=== PATIENT | male | born 1935 | race Caucasian/White ===

== ENCOUNTER 2017-06-21 07:09 | Day surgery (SDC) | payer MEDICARE ==
[~2017-06-21] VITALS: Ht 172.7 cm; Wt 76.8 kg
[~2017-06-21 07:09] MED LIST: ALTACE5 MG PO; BAYER CHEWABLE81 MG PO; CYCLOBENZAPRINE10 MG PO; DITROPAN X5 MG/BOTTL PO; DURAGESIC1 PATCH .1 TRANSDERM; DYAZIDE 37.5/251 CAP PO; HALDOL5 MG PO; HYDROCODON-ACE1 EAC7 PO; KLONOPIN0.5 MG PO; LEVAQUIN500 MG PO; LIPITOR40 MG PO; METOPROLOL TART50 MG; MUCINEX600 MG PO; NEURONTIN 300300 MG PO; PHENERGAN25 M1 PO; VALIUM5 MG PO; VESICARE10 MG PO; VITAMIN B-122500 MCG PO; VOLTAREN75 MG PO; ZYLOPRIM100 MG PO
[2017-06-21 07:45] LABS: BASOPHILS 0.4 % (0-2); EOSINOPHILS 2.2 % (0-7); HEMATOCRIT 40.8 % (42.0-54.0); HEMOGLOBIN 13.4 g/dL (13.5-17.5); IMMATURE GRANULOCYTES 0.8 % (0-5); LYMPHOCYTES 13.3 % (15-50); MCH 28.3 pg (26.0-34.0); MCHC 32.8 g/dL (31.0-37.0); MCV 86.3 fL (80.0-100.0); MEAN PLATELET VOLUME 10.5 fL (7.4-10.4); MONOCYTES 9.8 % (2-11); NEUTROPHILS 73.5 % (40-80); PLATELET COUNT 353 10x3/uL (130-400); RBC 4.73 10x6/uL (4.20-6.10); RDW 14.6 % (11.5-14.5); WBC 16.5 10x3/uL (4.8-10.8)
[2017-06-21] MEDS ORDERED: XARELTO15 MG PO (07:53)
[2017-06-21] MEDS ORDERED: LIORESAL 10 MG10 MG PO (07:53)
[2017-06-21 07:55] VITALS: Ht 172.7 cm; Wt 76.8 kg
[2017-06-21 07:55] LABS: ANION GAP 16.8 mmol/L (8-16); CALCIUM 9.3 mg/dL (8.5-10.1); CARBON DIOXIDE 25.5 mmol/L (21.0-32.0); CREATININE - SERUM 1.3 mg/dL (0.6-1.3); POTASSIUM - SERUM 3.3 mmol/L (3.5-5.1)
[2017-06-21] MEDS ORDERED: OMEPRAZOLE40 MG PO (08:10)
--- NOTE | 2017-06-22 07:19 | OP ---
PATIENT NAME: ERIC SUAREZ MEDICAL RECORD: [id number] :33 [facility] DATE: SURGEON: YUE MATAMOROS DO DATE OF OPERATION: 06/21/2017 PROCEDURE: EGD with biopsies. INDICATIONS FOR PROCEDURE: Nausea, melena, right-sided abdominal pain. SCOPE: Etaphase video gastroscope. MEDICATIONS: Propofol 150 mg IV per anesthesia. ESTIMATED BLOOD LOSS: Minimal. COMPLICATIONS: None. FINDINGS: Informed consent was given. The patient was made comfortable with the above medication. After reaching an adequate level of sedation by slow IV push, the patient was placed on his left side. The endoscope was then advanced under direct visualization through the mouth to the third portion of the duodenum. The scope was slowly withdrawn and mucosa was carefully examined. In the esophagus, there was a few patchy areas of mild esophageal candidiasis. At the GE junction, there was very mild evidence of LA class A reflux-induced esophagitis. The endoscope was advanced beyond the GE junction into the stomach and retroflexed to view the cardia which appeared normal. Throughout the stomach in a diffuse pattern, there were findings consistent with atrophic gastritis. There were a few telangiectatic areas, but there were no ulcers, erosions, or other bleeding sites. Random biopsies were taken to submit for histology and to rule out H. pylori. The endoscope was advanced beyond the pylorus into the small bowel where the duodenal bulb, first portion, second portion, and third portion all appeared normal. The scope was withdrawn from the patient. The patient tolerated the procedure well and there were no complications. IMPRESSION: 1. Esophageal candidiasis which is mild. 2. Left atrial class A reflux-induced esophagitis. 3. 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 PLAN AND RECOMMENDATIONS: 1. Discharge home when recovery parameters are met. 2. Follow up biopsy specimen results. 3. Continue current medications including omeprazole 40 mg daily for at least 30 more days. 4. A script will be provided for fluconazole 100 mg daily times 7 days. 5. The melena has resolved. If the nausea and abdominal pain does not improve or resolve with the omeprazole, I would recommend more fiber in the diet, staying well-hydrated, and continue stool softeners to facilitate more regular bowel movements. Consideration could be given to performing a gastric emptying study to rule out gastroparesis and an abdominal ultrasound could be performed to rule out obvious causes for pain outside of the digestive tract. 6. Further recommendations to follow biopsies if indicated. TRANSINT:[id number] Voice Confirmation ID: [id number] DOCUMENT ID: [id number] OPERATIVE REPORT [id number] ERIC SUAREZ NATHAN A DO at 0719 CC: [id number] DICTATION DATE: 06/21/17 1000 COOK DINNER: 06/21/17 1614 [facility] 06/21/17 [address] [place] [address]
== END 2017-06-21 11:15 | disposition home or self-care (01) ==
LOC: D.OPS 07:09
PROVIDERS: Anesthesiology
DX: R11.0 Nausea (principal); R10.9 Unspecified abdominal pain; K92.1 Melena; B37.81 Candidal esophagitis; K21.0 Gastro-esophageal reflux disease with esophagitis; Z01.812 Encounter for preprocedural laboratory examination; I10 Essential (primary) hypertension; E11.9 Type 2 diabetes mellitus without complications; J44.9 Chronic obstructive pulmonary disease, unspecified

== ENCOUNTER → 2017-09-15 15:12 | Outpatient (CLI) | payer MEDICARE ==
[2017-06-21 07:55] VITALS: BMI 25.7
[~2017-09-15 15:12] MED LIST changes: +GABAPENTIN100 MG PO; +LIORESAL 10 MG10 MG PO; +OMEPRAZOLE40 MG PO; +XARELTO15 MG PO
[2017-09-15 15:23] LABS: BASOPHILS 0.3 % (0-2); EOSINOPHILS 0.8 % (0-7); HEMATOCRIT 21.1 % (42.0-54.0); IMMATURE GRANULOCYTES 0.3 % (0-5); LYMPHOCYTES 9.6 % (15-50); MCH 21.4 pg (26.0-34.0); MCHC 28.4 g/dL (31.0-37.0); MCV 75.4 fL (80.0-100.0); MEAN PLATELET VOLUME 10.4 fL (7.4-10.4); MONOCYTES 8.6 % (2-11); NEUTROPHILS 80.4 % (40-80); PLATELET COUNT 370 10x3/uL (130-400); RDW 16.2 % (11.5-14.5); WBC 15.4 10x3/uL (4.8-10.8)
== END | disposition home or self-care (01) ==
LOC: D.LABREF 15:12
PROVIDERS: Neurological Surgery
DX: D64.9 Anemia, unspecified (principal)

== ENCOUNTER 2017-09-15 16:27 | Inpatient (IN) | payer MEDICARE ==
[~2017-09-15] VITALS: Ht 172.7 cm; Wt 80.9 kg
[2017-09-15] VITALS (9 sets, daily range): BP systolic 91–148; BP diastolic 44–90
[~2017-09-15 16:27] MED LIST changes: -GABAPENTIN100 MG PO
[2017-09-15 17:49] LABS: ALBUMIN 3.6 g/dL (3.4-5.0); ANION GAP 18.9 mmol/L (8-16); BILIRUBIN - TOTAL 0.24 mg/dL (0.2-1.3); CALCIUM 8.8 mg/dL (8.5-10.1); CARBON DIOXIDE 23.4 mmol/L (21.0-32.0); CREATININE - SERUM 1.4 mg/dL (0.6-1.3); POTASSIUM - SERUM 4.3 mmol/L (3.5-5.1)
[2017-09-15 18:22] LABS: BASOPHILS 0.3 % (0-2); EOSINOPHILS 0.9 % (0-7); IMMATURE GRANULOCYTES 0.5 % (0-5); LYMPHOCYTES 10.4 % (15-50); MCH 21.8 pg (26.0-34.0); MEAN PLATELET VOLUME 10.4 fL (7.4-10.4); MONOCYTES 8.1 % (2-11); NEUTROPHILS 79.8 % (40-80); PLATELET COUNT 314 10x3/uL (130-400); RBC 2.48 10x6/uL (4.20-6.10); RDW 16.3 % (11.5-14.5)
[2017-09-15 18:24] LABS: WBC 11.5 10x3/uL (4.8-10.8)
[2017-09-15 18:25] LABS: HEMATOCRIT 18.6 % (42.0-54.0); HEMOGLOBIN 5.4 g/dL (13.5-17.5)
--- NOTE | 2017-09-15 20:00 | NUR ---
ICU NURSE STARTED IV TO LAC ONE STICK, GOING TO GO GET FIRST UNIT OF BLOOD NOW
--- NOTE | 2017-09-15 20:25 | NUR ---
FIRST UNIT OF BLOOD STARTED
[2017-09-16] VITALS (22 sets, daily range): BP systolic 101–138; BP diastolic 50–89; Ht 172.7 cm; Wt 80.9 kg
--- NOTE | 2017-09-16 00:31 | NUR ---
SECOND UNIT OF BLOOD STARTED
--- NOTE | 2017-09-16 03:01 | NUR ---
SECOND UNIT OF BLOOD FINISHED, PT SLEEPING, NO DISTRESS NOTED, CALL LIGHT IN REACH, WILL CONTINUE TO MONITOR
[2017-09-16 06:38] LABS: BASOPHILS 0.2 % (0-2); IMMATURE GRANULOCYTES 0.4 % (0-5); LYMPHOCYTES 20.8 % (15-50); MCH 25.2 pg (26.0-34.0); MCHC 32.8 g/dL (31.0-37.0); MCV 76.9 fL (80.0-100.0); MEAN PLATELET VOLUME 9.5 fL (7.4-10.4); MONOCYTES 11.7 % (2-11); NEUTROPHILS 63.9 % (40-80); RDW 15.9 % (11.5-14.5)
[2017-09-16 06:40] LABS: RBC 3.29 10x6/uL (4.20-6.10); WBC 8.1 10x3/uL (4.8-10.8)
[2017-09-16 06:41] LABS: HEMATOCRIT 25.3 % (42.0-54.0); HEMOGLOBIN 8.3 g/dL (13.5-17.5); PLATELET COUNT 222 10x3/uL (130-400)
[2017-09-16 06:48] LABS: ANION GAP 11.1 mmol/L (8-16); CALCIUM 8.3 mg/dL (8.5-10.1); CARBON DIOXIDE 27.8 mmol/L (21.0-32.0); CREATININE - SERUM 1.5 mg/dL (0.6-1.3); POTASSIUM - SERUM 3.9 mmol/L (3.5-5.1)
--- NOTE | 2017-09-16 09:51 | NUR ---
PRE OPERATIVE MEDICATIONS ADMINISTERED AT THIS TIME.
--- NOTE | 2017-09-16 10:20 | NUR ---
TAKEN FOR EGD AT THIS TIME.
[2017-09-16 10:21] LABS: HEMATOCRIT 24.6 % (42.0-54.0); HEMOGLOBIN 7.9 g/dL (13.5-17.5)
--- NOTE | 2017-09-16 10:57 | NUR ---
AVMS ABLATED WITH GOLD PROBE.
--- NOTE | 2017-09-16 11:11 | NUR ---
2CC OF EPENEPHRINE INJECTED FOR BLEEDING CONTROL.
--- NOTE | 2017-09-16 11:19 | NUR ---
1 CLIP WAS READY TO PLACED BUT DID NOT ACTIVATE WAS READY AAND WAISTED.
[2017-09-16] MEDS ORDERED: GABAPENTIN100 MG PO ×2 (12:08→12:22)
[2017-09-16] MEDS ORDERED: KLONOPIN0.5 MG PO (12:10)
[2017-09-16 13:42] LABS: HEMATOCRIT 25.4 % (42.0-54.0)
[2017-09-16 16:35] LABS: HEMATOCRIT 23.5 % (42.0-54.0)
[2017-09-16 16:41] LABS: HEMOGLOBIN 7.3 g/dL (13.5-17.5)
--- NOTE | 2017-09-16 20:05 | NUR ---
FIRST OF 2 UNITS OF PRBC STARTED, DENIES NEEDS, VITALS WNL, CALL LIGHT IN REACH
--- NOTE | 2017-09-16 22:38 | NUR ---
FIRST UNIT OF PRBC FINISHED, DENIES NEEDS, NO S/S OF ADVERSE REACTION OR DISTRESS NOTED, BE DLOWEST POSITION, CALL LIGHT IN REACH, WILL CONTINUE TO MONITOR
[2017-09-17] VITALS: BP 130/60
[2017-09-17 00:15] VITALS: BP 115/53
[2017-09-17 00:45] VITALS: BP 112/50
[2017-09-17 01:15] VITALS: BP 129/58
--- NOTE | 2017-09-17 01:51 | NUR ---
SECOND UNIT OF PRBCS FINISHED, HELPED PT TO BATHROOM, DENIES NEEDS, ANGELA ALARM ON, CALL LIGHT IN REACH, BED LOWEST POSITION
--- NOTE | 2017-09-17 06:09 | NUR ---
PT RESTING QUIETLY, EYES CLOSED. RESP EVEN, UNLABORED. NO DISTRESS NOTED. CONTINUE TOMATO PASTE MAKER'S PLAN OF CARE.
[2017-09-17 07:11] LABS: BASOPHILS 0.5 % (0-2); EOSINOPHILS 3.3 % (0-7); IMMATURE GRANULOCYTES 0.5 % (0-5); LYMPHOCYTES 15.7 % (15-50); MCH 24.7 pg (26.0-34.0); MCHC 31.9 g/dL (31.0-37.0); MCV 77.4 fL (80.0-100.0); MEAN PLATELET VOLUME 10.2 fL (7.4-10.4); MONOCYTES 9.4 % (2-11); NEUTROPHILS 70.6 % (40-80); PLATELET COUNT 207 10x3/uL (130-400); RBC 3.89 10x6/uL (4.20-6.10); RDW 16.7 % (11.5-14.5); WBC 8.8 10x3/uL (4.8-10.8)
[2017-09-17 07:14] LABS: ALBUMIN 2.9 g/dL (3.4-5.0); ANION GAP 11.7 mmol/L (8-16); BILIRUBIN - TOTAL 0.82 mg/dL (0.2-1.3); CALCIUM 8.1 mg/dL (8.5-10.1); CREATININE - SERUM 1.2 mg/dL (0.6-1.3); POTASSIUM - SERUM 3.7 mmol/L (3.5-5.1); PROTEIN - SERUM 5.9 g/dL (6.4-8.2)
[2017-09-17 07:20] LABS: HEMATOCRIT 30.1 % (42.0-54.0); HEMOGLOBIN 9.6 g/dL (13.5-17.5)
--- NOTE | 2017-09-17 07:30 | NUR ---
ASSESSMENT PER FLOW SHEET.PT WIHTOUT DISTRESS.DENIES NEEDS AT PRESENT.FALL PREVENTION IN PLACE WITH ANGELA MAT.CALL LIGHT IN REACH
[2017-09-17 08:10] VITALS: BP 118/61
[2017-09-17 10:17] LABS: HEMATOCRIT 29.6 % (42.0-54.0); HEMOGLOBIN 9.5 g/dL (13.5-17.5)
--- NOTE | 2017-09-17 11:56 | NUR ---
FAMILY AT BEDSIDE.PT WITHOUT DISTRESS.
[2017-09-17 12:53] VITALS: BP 106/50
[2017-09-17 13:16] LABS: HEMATOCRIT 30.7 % (42.0-54.0); HEMOGLOBIN 9.7 g/dL (13.5-17.5)
--- NOTE | 2017-09-17 14:52 | NUR ---
FAMILY AT BEDSIDE.MEDS PER MAR PER FAMILY AND PT REQQUEST FOR LEG DISCOMFORT
--- NOTE | 2017-09-17 19:01 | NUR ---
IV DCD X2 WITH CATH TIP INTACT.DISCHARGE INSTRUCTIONS WITH DAUGHTER,STATES UNDEERSTANDING.
--- NOTE | 2017-09-17 19:03 | NUR ---
LEFT UNIT VIA WHEELCHAIR FOR TRANSPORT HOME
--- NOTE | 2017-10-22 12:26 | DS ---
PATIENT:ERIC SUAREZ :33 MEDICAL RECORD: [id number] DISCHARGE SUMMARY ADMISSION DATE: 09/15/17 DISCHARGE DATE: 09/17/17 DATE OF ADMISSION: 09/15/2017 DATE OF DISCHARGE: 09/17/2017 DISCHARGE DIAGNOSES: 1. Severe anemia. 2. Chronic obstructive pulmonary disease. 3. Hypertension. 4. Dyspnea. 5. History of deep venous thrombosis. 6. Gastrointestinal bleed. CONSULTS: 1. Nick Abad DO 2. IR for possible IVC filter. IMAGING STUDIES: 1. Ultrasound of the lower extremities, which was negative for DVT. 2. Chest x-ray, which showed no acute findings. 3. 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 HOSPITAL COURSE: The full H&P is listed elsewhere on the chart for this 82-year-old patient of Dr. Cao'violeta with multiple comorbid conditions who was on Xarelto therapy with a DVT in the past. He was found to be severely anemic with a hemoglobin of 6 and hematocrit of 21. His DVT was about 6 months ago. He entered in the hospital with severe anemia, underwent transfusion of packed red blood cells, and a GI consult as well as interventional radiology consult was obtained. The patient was placed on a Protonix drip and given a full liquid diet. The endoscopic procedure did show a single AVM that was injected with epinephrine. This did successfully stop the bleeding. Interventional radiology was not needed for IVC filter since the repeat venous Dopplers were negative for DVT. His Xarelto therapy was discontinued. His blood counts did stabilize. He was thought to be stable and was discharged to home to follow up in the outpatient setting. TRANSINT:[id number] Voice Confirmation ID: [id number] DOCUMENT ID: [id number] Dictated By: BELEN DUKE I have interviewed/examined the above patient and agree with these documented findings. MAHSA ODELL MD at 1226 at 1433 CC: [id number] DICTATION DATE: 10/13/17 1658 HEALTHCARE PROJECT MANAGER: 10/14/17 0936 DIS IN 09/17/17 [address] [place] [address]
== END 2017-09-17 19:03 | disposition home health service (06) | DRG 378 ==
LOC: D.MS 16:27
PROVIDERS: Internal Medicine Gastroenterology; ADMIT Family Medicine
PROC: 3E0G8GC Introduction of Other Therapeutic Substance into Upper GI, Via Natural or Artificial Opening Endoscopic (ICD-10-PCS; principal; 2017-09-16 10:00)
DX: K31.811 Angiodysplasia of stomach and duodenum with bleeding (principal); D62 Acute posthemorrhagic anemia; K31.819 Angiodysplasia of stomach and duodenum without bleeding; I10 Essential (primary) hypertension; J44.9 Chronic obstructive pulmonary disease, unspecified; G25.5 Other chorea; G25.81 Restless legs syndrome; Z86.718 Personal history of other venous thrombosis and embolism; Z79.01 Long term (current) use of anticoagulants; D64.9 Anemia, unspecified

== ENCOUNTER 2017-10-11 16:13 | Emergency (ER) | payer MEDICARE ==
[2017-09-16 01:52] VITALS: BMI 27.1
[~2017-10-11 16:13] MED LIST changes: +GABAPENTIN100 MG PO
[2017-10-11 17:01] LABS: BASOPHILS 0.3 % (0-2); EOSINOPHILS 1.9 % (0-7); HEMATOCRIT 36.8 % (42.0-54.0); HEMOGLOBIN 11.3 g/dL (13.5-17.5); IMMATURE GRANULOCYTES 0.5 % (0-5); LYMPHOCYTES 5.9 % (15-50); MCH 24.4 pg (26.0-34.0); MCHC 30.7 g/dL (31.0-37.0); MCV 79.5 fL (80.0-100.0); MEAN PLATELET VOLUME 10.2 fL (7.4-10.4); MONOCYTES 6.8 % (2-11); NEUTROPHILS 84.6 % (40-80); RBC 4.63 10x6/uL (4.20-6.10); RDW 18.4 % (11.5-14.5)
[2017-10-11 17:11] LABS: PLATELET COUNT 335 10x3/uL (130-400)
[2017-10-11 17:15] LABS: ALBUMIN 3.5 g/dL (3.4-5.0); ANION GAP 15.1 mmol/L (8-16); BILIRUBIN - TOTAL 0.36 mg/dL (0.2-1.3); CALCIUM 8.4 mg/dL (8.5-10.1); CREATININE - SERUM 1.6 mg/dL (0.6-1.3); POTASSIUM - SERUM 3.1 mmol/L (3.5-5.1); PROTEIN - SERUM 6.9 g/dL (6.4-8.2)
== END 2017-10-11 19:18 | disposition home or self-care (01) ==
LOC: D.ER 16:13
PROVIDERS: Family Medicine
DX: J11.1 Influenza due to unidentified influenza virus with other respiratory manifestations (principal)

== ENCOUNTER 2018-02-03 08:09 | Day surgery (SDC) | payer MEDICARE ==
[~2018-02-03] VITALS: Ht 172.7 cm; Wt 83.0 kg
--- NOTE | ~2018-02-03 | OP ---
PATIENT NAME: ERIC SUAREZ MEDICAL RECORD: [id number] :34 LOCATION:D.[facility] ADMISSION DATE: SURGEON: WANDER GILLILAND MD DATE OF OPERATION: 02/03/2018 PREOPERATIVE DIAGNOSES: 1. Headache. 2. Hypertension. 3. Diabetes mellitus. 4. Chronic obstructive pulmonary disease. 5. Gout. POSTOPERATIVE DIAGNOSES: 1. Headache. 2. Hypertension. 3. Diabetes mellitus. 4. Chronic obstructive pulmonary disease. 5. Gout. PROCEDURE: Left temporal artery biopsy. SURGEON: Wander Gilliland MD HOSE BUILDER: Physician's funeral director's assistant student is Denice Nugent REPORT OF OPERATION: The patient's left face and ear were prepped and draped in sterile fashion. A longitudinal incision was made just anterior to the patient's left ear. We dissected through the subcutaneous tissues and encountered the temporal artery. This artery was grasped and we extended our dissection up towards the forehead. At this point, it was ligated and tied off with a 3-0 silk tie. As we were beginning our dissection inferiorly, the vessel broke in 2 places. We sent these 2 sections of tissue off for permanent specimen. The inferior aspect of the vessel was ligated with 3-0 silk tie and the remaining vessel was sent off for permanent. There was some bleeding at one point and this was eventually taken care of with a suture ligation. The wound was then irrigated out thoroughly with normal saline. The subcutaneous tissues were reapproximated with interrupted 3-0 Vicryl and then infused with a total of 7 mL of 0.25% Marcaine with epinephrine. The skin incisions were all closed with subcutaneous 5-0 Monocryl and dressed with Dermabond. COMPLICATIONS: None. CONDITION: Stable. ANESTHESIA: General endotracheal and local. BLOOD LOSS: 100 mL. TRANSINT:[id number] Voice Confirmation ID: [id number] DOCUMENT ID: [id number] OPERATIVE REPORT [id number] ERIC SUAREZ WANDER YU MD at 0804 CC: LUIAZ CASILLAS [id number] DICTATION DATE: 02/03/18 1142 NEGATIVE SPOTTER: 02/03/18 1226 [facility] 02/03/18 [address] [place] [address]
[~2018-02-03 08:09] MED LIST changes: +CARAFATE1 G PO; +CLARITIN 10 MG10 MG PO; +IPRAT-ALBUT 0.5-3 ML UPD; +K-TAB10 MEQ PO; +PREDNISONE10 MG PO; +STOOL SOFTENER100 M1 PO
[2018-02-03 09:24] VITALS: BP 121/66; Ht 172.7 cm; Wt 83.0 kg
[2018-02-03 09:33] LABS: BASOPHILS 0.2 % (0-2); EOSINOPHILS 0 % (0-7); HEMATOCRIT 37.6 % (42.0-54.0); HEMOGLOBIN 11.7 g/dL (13.5-17.5); IMMATURE GRANULOCYTES 1.2 % (0-5); LYMPHOCYTES 12.7 % (15-50); MCHC 31.1 g/dL (31.0-37.0); MCV 77.2 fL (80.0-100.0); MEAN PLATELET VOLUME 9.9 fL (7.4-10.4); NEUTROPHILS 78.9 % (40-80); RBC 4.87 10x6/uL (4.20-6.10); RDW 16.8 % (11.5-14.5); WBC 12.9 10x3/uL (4.8-10.8)
[2018-02-03 09:40] LABS: PLATELET COUNT 227 10x3/uL (130-400)
[2018-02-03 09:46] LABS: ANION GAP 15.1 mmol/L (8-16); CALCIUM 8.6 mg/dL (8.5-10.1); CREATININE - SERUM 1.1 mg/dL (0.6-1.3); POTASSIUM - SERUM 3.1 mmol/L (3.5-5.1)
[2018-02-03] MEDS ORDERED: HYDROCODON-ACE1 EAC7 PO (11:38)
== END 2018-02-03 13:45 | disposition home or self-care (01) ==
LOC: D.OPS 08:09
PROVIDERS: Surgery
DX: R51 Headache (principal); I10 Essential (primary) hypertension; E11.9 Type 2 diabetes mellitus without complications; J44.9 Chronic obstructive pulmonary disease, unspecified; M10.9 Gout, unspecified; Z01.812 Encounter for preprocedural laboratory examination

== ENCOUNTER 2018-08-24 12:21 | Inpatient (IN) | payer MEDICARE ==
[~2018-08-24] VITALS: Ht 172.7 cm; Wt 83.6 kg
--- NOTE | ~2018-08-24 | MORECARE ---
CASE MANAGEMENT DISCHARGE SUMMARY PATIENT: ERIC SUAREZ UNIT: [id number] ADM DATE: 08/24/18 AGE: 83 : 34 SEX: M ROOM/BED: D.2107 AUTHOR: MARICHUY PATTON PHYSICIAN: REFERRING PHYSICIAN: DAMEON LEPE MD DATE OF SERVICE: 08/29/18 Discharge Plan Patient Name: ERIC SUAREZ [facility] [facility] 1935 Planned Disposition: Home Anticipated Discharge Date: 08/28/18 Discharge Date: 08/28/2018 Expected LOS: 4 Initial Reviewer: [email or web address] Initial Review Date: 08/29/2018 Generated: 08/29/18 9:24 am Patient Name: ERIC SUAREZ Page [id number] at 0824 All edits/amendments must be made on the electronic document DICTATION DATE: 08/29/18822 OFFICE BOOKKEEPER: EVERARDO 08/29/18822 RPT#: [id number] DC DATE:08/28/18 STATUS: DIS IN [facility] [address] [place] [address] END OF REPORT
--- NOTE | ~2018-08-24 | CN ---
PATIENT NAME:ERIC SUAREZ MEDICAL RECORD: [id number] : 33 LOCATION:D. D.2107 ADMIT DATE: 08/24/18 ACCOUNT: [id number] CONSULTING PHYSICIAN: VLADIMIR LAZCANO MD REFERRING PHYSICIAN: JOSE KRUSE MD DATE OF CONSULTATION: 08/24/2018 CONSULT REQUESTING PHYSICIAN: Jose Kruse MD REASON FOR CONSULTATION: Pneumonia and COPD exacerbation. HISTORY: Mr. Suarez is an 83-year-old gentleman. According to the patient, he woke up this morning with shortness of breath with mild exertion. He was congested in chest. He had a chest x-ray at Dr. Cao's office and was told that he had pneumonia on the right side. Denies any night sweats. He is feeling feverish. REVIEW OF THE SYSTEMS: As in history of present illness. PAST MEDICAL HISTORY: 1. COPD. 2. History of pneumonia. 3. Hypertension. 4. Arthritis. 5. Anxiety. PAST SURGICAL HISTORY: 1. Cholecystectomy. 2. Knee surgery. 3. Back surgery. 4. Surgery for carpal tunnel syndrome. ALLERGIES: HE IS ALLERGIC TO STREPTOMYCIN AND SULFA. MEDICATIONS: [employer] was reviewed. PERSONAL AND SOCIAL HISTORY: The patient is an ex-smoker. He is nondrinker. FAMILY HISTORY: Noncontributory. PHYSICAL EXAMINATION: GENERAL: Now, the patient is lying comfortably in bed. He is wearing nasal cannula oxygen. He is not in acute distress. VITAL SIGNS: The blood pressure is 133/64, pulse is 97, respiration is 20, temperature is 98.1, SpO2 is 96% on 3 liters nasal cannula. HEENT: Conjunctivae are pink. Sclerae are not icteric. NECK: Neck is supple. No JVD. CHEST: There are crackles at the right base and wheeze on forceful expiration. HEART: Rhythm regular. Normal sound. No murmur. ABDOMEN: Abdomen is soft. Bowel sounds present. No hepatosplenomegaly. RECTAL: Deferred. EXTREMITIES: No cyanosis. No clubbing. No pedal edema. SKIN: The skin is warm. Normal turgor. CENTRAL NERVOUS SYSTEM: The patient is awake and alert. There is no obvious cranial nerve abnormality. The gait was not tested. CONSULT REPORT [id number] ERIC SUAREZ IMAGING DATA: Chest x-ray; there is no chest x-ray available for review. LABORATORY DATA: The labs are not available. IMPRESSION: 1. Possible pneumonia. 2. Acute hypoxic respiratory failure. 3. Acute exacerbation of COPD. 4. Ex-smoker. 5. Hypertension. RECOMMENDATION: 1. Continue the empiric antibiotic. 2. Albuterol/ipratropium nebulizer. 3. Brovana and budesonide nebulizer. 4. Methylprednisolone IV. 5. Check the chest radiograph. 6. Follow up on the labs. Dr. Kruse, thank you for involving me in the care of Mr. Suarez. TRANSINT:[id number] Voice Confirmation ID: [id number] DOCUMENT ID: [id number] VLADIMIR LAZCANO MD at 1711 CC: [id number] DICTATION DATE: 08/24/181714 VICE PRESIDENT OF OPERATIONS: 08/24/18 1827 DIS IN 08/28/18 [address] [place] [address]
--- NOTE | ~2018-08-24 | MORECARE ---
CASE MANAGEMENT DISCHARGE SUMMARY PATIENT: ERIC SUAREZ UNIT: [id number] ADM DATE: 08/24/18 AGE: 83 : 34 SEX: M ROOM/BED: D.2107 AUTHOR: MARICHUY PATTON PHYSICIAN: REFERRING PHYSICIAN: DAMEON LEPE MD DATE OF SERVICE: 08/29/18 Discharge Plan Patient Name: ERIC SUAREZ Facility: [facility]:[place] : 1935 Planned Disposition: Home Anticipated Discharge Date: 08/28/18 Discharge Date: 08/28/2018 Expected LOS: 4 Initial Reviewer: [email or web address] Initial Review Date: 08/29/2018 Generated: 08/29/18 9:43 am Comments DCP- Discharge Planning Updated by [email or web address]: Ty Levine on 08/29/18 7:[address] Patient Name: ERIC SUAREZ Encounter No: [id number] : 1935 Primary Insurance: [facility] MED[employer]UTIONS Anticipated DC Date: 08-28-2018 Planned Disposition: Home DCP follow-up note: CM RECEIVED DISCHARGE ORDER FROM 08-28 INDICATING PT WILL NEED IV FERRLECIT OUPATIENT AND THAT [facility] WILL COORDINATE. CM CALLED [facility], , SPOKE TO KAT AND MADE HER AWARE OF THE ORDER. KAT REPORTED THAT [facility] WILL TAKE CARE OF THIS NEED. TY LEVINE, CASE MANAGEMENT Last DP export: 08/29/18 7:24 Patient Name: ERIC SUAREZ Page [phone] at 0843 All edits/amendments must be made on the electronic document DICTATION DATE: 08/29/18842 BACK GRAY CLOTH WASHER: EVERARDO 08/29/18 0843 RPT#: [id number] DC DATE:08/28/18 STATUS: DIS IN [facility] [address] [place] [address] END OF REPORT
[2018-08-24 14:40] VITALS: BP 133/64; Ht 172.7 cm; Wt 83.6 kg
[2018-08-24 15:44] VITALS: BP 133/64
[2018-08-24] MEDS ORDERED: MOBIC7.5 MG PO (17:27)
[2018-08-24] MEDS ORDERED: TESSALON PERLE100 MG PO (17:29)
[2018-08-24] MEDS ORDERED: PHENERGAN DM SYR5 ML PO (17:30)
[2018-08-24] MEDS ORDERED: NORCO 7.5/325 T1 TA1 PO (17:32)
[2018-08-24] MEDS ORDERED: BREO ELLIPTA 21 EACH (17:42)
[2018-08-24] MEDS ORDERED: IPRAT-ALBUT 0.5-3 ML UPD (17:42)
[2018-08-24 18:52] LABS: BASOPHILS 0.2 % (0-2); EOSINOPHILS 1.6 % (0-7); HEMATOCRIT 32.4 % (42.0-54.0); HEMOGLOBIN 9.5 g/dL (13.5-17.5); IMMATURE GRANULOCYTES 0.5 % (0-5); LYMPHOCYTES 9.7 % (15-50); MCH 22.6 pg (26.0-34.0); MCHC 29.3 g/dL (31.0-37.0); MCV 77.1 fL (80.0-100.0); MEAN PLATELET VOLUME 10.5 fL (7.4-10.4); MONOCYTES 6.4 % (2-11); NEUTROPHILS 81.6 % (40-80); PLATELET COUNT 265 10x3/uL (130-400); WBC 19.5 10x3/uL (4.8-10.8)
[2018-08-24 19:16] LABS: ALBUMIN 2.9 g/dL (3.4-5.0); ANION GAP 16.2 mmol/L (8-16); BILIRUBIN - TOTAL 0.34 mg/dL (0.2-1.3); CALCIUM 8.5 mg/dL (8.5-10.1); CARBON DIOXIDE 25.2 mmol/L (21.0-32.0); CREATININE - SERUM 1.6 mg/dL (0.6-1.3); POTASSIUM - SERUM 3.4 mmol/L (3.5-5.1); PROTEIN - SERUM 6.2 g/dL (6.4-8.2)
[2018-08-24 20:27] VITALS: BP 115/55
[2018-08-25 04:00] VITALS: BP 120/58
[2018-08-25 08:03] LABS: APPEARANCE CLEAR (CLEAR); BILIRUBIN NEGATIVE (NEGATIVE); COLOR YELLOW (YELLOW); GLUCOSE NEGATIVE (NEGATIVE); KETONE SMALL mg/dL (NEGATIVE); NITRITE NEGATIVE (NEGATIVE); PROTEIN NEGATIVE (NEGATIVE); SPECIFIC GRAVITY 1.015 (1.005-1.020); UROBILINOGEN NORMAL (NORMAL)
[2018-08-25 08:13] VITALS: BP 118/57
[2018-08-25 11:54] VITALS: BP 138/65
[2018-08-25 15:53] VITALS: BP 103/54
[2018-08-25 16:48] LABS: BASOPHILS 0 % (0-2); EOSINOPHILS 0 % (0-7); HEMATOCRIT 29.4 % (42.0-54.0); HEMOGLOBIN 8.6 g/dL (13.5-17.5); IMMATURE GRANULOCYTES 0.4 % (0-5); LYMPHOCYTES 5.1 % (15-50); MCH 22.3 pg (26.0-34.0); MCHC 29.3 g/dL (31.0-37.0); MCV 76.2 fL (80.0-100.0); MEAN PLATELET VOLUME 10.7 fL (7.4-10.4); MONOCYTES 4.1 % (2-11); NEUTROPHILS 90.4 % (40-80); PLATELET COUNT 262 10x3/uL (130-400); RBC 3.86 10x6/uL (4.20-6.10); RDW 18.9 % (11.5-14.5)
[2018-08-25 16:55] LABS: WBC 14.5 10x3/uL (4.8-10.8)
[2018-08-25 17:00] LABS: ANION GAP 15.9 mmol/L (8-16); CALCIUM 8.3 mg/dL (8.5-10.1); CARBON DIOXIDE 22.3 mmol/L (21.0-32.0); CREATININE - SERUM 1.9 mg/dL (0.6-1.3); POTASSIUM - SERUM 3.2 mmol/L (3.5-5.1)
[2018-08-25 21:57] VITALS: BP 89/42
[2018-08-26 01:04] VITALS: BP 93/42
[2018-08-26 04:08] LABS: BASOPHILS 0 % (0-2); EOSINOPHILS 0 % (0-7); HEMOGLOBIN 8.3 g/dL (13.5-17.5); IMMATURE GRANULOCYTES 0.4 % (0-5); LYMPHOCYTES 4.8 % (15-50); MCH 22.4 pg (26.0-34.0); MCHC 29.6 g/dL (31.0-37.0); MCV 75.7 fL (80.0-100.0); MEAN PLATELET VOLUME 10.4 fL (7.4-10.4); MONOCYTES 5.4 % (2-11); NEUTROPHILS 89.4 % (40-80); PLATELET COUNT 261 10x3/uL (130-400); WBC 16.4 10x3/uL (4.8-10.8)
[2018-08-26 04:50] LABS: ALBUMIN 2.5 g/dL (3.4-5.0); BILIRUBIN - TOTAL 0.24 mg/dL (0.2-1.3); CALCIUM 8.4 mg/dL (8.5-10.1); CARBON DIOXIDE 27.3 mmol/L (21.0-32.0); CREATININE - SERUM 1.7 mg/dL (0.6-1.3); MAGNESIUM - SERUM 1.9 mg/dL (1.8-2.4); PROTEIN - SERUM 5.9 g/dL (6.4-8.2)
[2018-08-26 04:55] LABS: ANION GAP 11.5 mmol/L (8-16); POTASSIUM - SERUM 3.8 mmol/L (3.5-5.1)
[2018-08-26 05:40] VITALS: BP 102/48
[2018-08-26 09:01] VITALS: BP 119/53
[2018-08-26 10:30] LABS: % SATURATION 4 % (15-55); IRON 14 ug/dl (35-150); TOTAL IRON BIND CAPACITY 294 ug/dl (260-445); UNSAT IRON BIND CAPACITY 280 ug/dl (150-375)
[2018-08-26 12:18] VITALS: BP 127/58
[2018-08-26 16:06] VITALS: BP 128/51
[2018-08-26 20:12] VITALS: BP 130/57
[2018-08-27] VITALS (8 sets, daily range): BP systolic 131–152; BP diastolic 59–86
[2018-08-27 06:04] LABS: BASOPHILS 0.1 % (0-2); EOSINOPHILS 0 % (0-7); HEMATOCRIT 31.4 % (42.0-54.0); HEMOGLOBIN 9.3 g/dL (13.5-17.5); IMMATURE GRANULOCYTES 0.9 % (0-5); LYMPHOCYTES 3.5 % (15-50); MCH 22.3 pg (26.0-34.0); MCHC 29.6 g/dL (31.0-37.0); MCV 75.3 fL (80.0-100.0); MEAN PLATELET VOLUME 10.7 fL (7.4-10.4); MONOCYTES 4.2 % (2-11); NEUTROPHILS 91.3 % (40-80); RBC 4.17 10x6/uL (4.20-6.10); RDW 19.1 % (11.5-14.5); WBC 15.3 10x3/uL (4.8-10.8)
[2018-08-27 06:07] LABS: PLATELET COUNT 346 10x3/uL (130-400)
[2018-08-27 06:33] LABS: ALBUMIN 2.5 g/dL (3.4-5.0); ANION GAP 11.6 mmol/L (8-16); CALCIUM 8.4 mg/dL (8.5-10.1); CREATININE - SERUM 1.3 mg/dL (0.6-1.3); MAGNESIUM - SERUM 1.8 mg/dL (1.8-2.4); POTASSIUM - SERUM 3.6 mmol/L (3.5-5.1)
[2018-08-27 06:54] LABS: BILIRUBIN - TOTAL 0.3 mg/dL (0.2-1.3); PROTEIN - SERUM 6.2 g/dL (6.4-8.2)
[2018-08-27 08:16] LABS: FOLATE (FOLIC ACID) - SERUM 7.6 ng/mL (>3.0)
[2018-08-28 03:45] VITALS: BP 142/73
[2018-08-28 05:22] LABS: BASOPHILS 0.1 % (0-2); EOSINOPHILS 0 % (0-7); HEMATOCRIT 34.2 % (42.0-54.0); HEMOGLOBIN 10.2 g/dL (13.5-17.5); IMMATURE GRANULOCYTES 3.3 % (0-5); LYMPHOCYTES 5.6 % (15-50); MCH 22.4 pg (26.0-34.0); MCHC 29.8 g/dL (31.0-37.0); MCV 75.2 fL (80.0-100.0); MEAN PLATELET VOLUME 10.5 fL (7.4-10.4); MONOCYTES 6.6 % (2-11); NEUTROPHILS 84.4 % (40-80); PLATELET COUNT 326 10x3/uL (130-400); RBC 4.55 10x6/uL (4.20-6.10); RDW 19.2 % (11.5-14.5); WBC 14.6 10x3/uL (4.8-10.8)
[2018-08-28 05:44] LABS: ALBUMIN 2.9 g/dL (3.4-5.0); ANION GAP 13.3 mmol/L (8-16); BILIRUBIN - TOTAL 0.34 mg/dL (0.2-1.3); CALCIUM 8.7 mg/dL (8.5-10.1); CARBON DIOXIDE 27.2 mmol/L (21.0-32.0); CREATININE - SERUM 1.4 mg/dL (0.6-1.3); MAGNESIUM - SERUM 1.9 mg/dL (1.8-2.4); POTASSIUM - SERUM 3.5 mmol/L (3.5-5.1); PROTEIN - SERUM 6.8 g/dL (6.4-8.2)
[2018-08-28 10:05] VITALS: BP 132/76
[2018-08-28 13:23] VITALS: BP 97/56
[2018-08-28 16:00] VITALS: BP 98/56
[2018-08-28] MEDS ORDERED: LEVOFLOXACIN500 MG PO (17:47)
[2018-08-28] MEDS ORDERED: PREDNISONE10 MG PO (17:47)
[2018-08-28 19:07] VITALS: BP 99/86
== END 2018-08-28 19:50 | disposition home or self-care (01) | DRG 193 ==
LOC: D.SDCHOLD 12:21 → D.M2 12:21
PROVIDERS: Emergency Medicine
DX: J18.9 Pneumonia, unspecified organism (principal); J96.01 Acute respiratory failure with hypoxia; J44.0 Chronic obstructive pulmonary disease with (acute) lower respiratory infection; J44.1 Chronic obstructive pulmonary disease with (acute) exacerbation; I10 Essential (primary) hypertension; F41.9 Anxiety disorder, unspecified; Z87.891 Personal history of nicotine dependence; D50.9 Iron deficiency anemia, unspecified

== ENCOUNTER 2019-01-13 06:08 | Observation (INO) | payer MEDICARE ==
[~2019-01-13] VITALS: Ht 172.7 cm; Wt 83.5 kg
[~2019-01-13 06:08] MED LIST changes: +BREO ELLIPTA 21 EACH; +LEVOFLOXACIN500 MG PO; +MOBIC7.5 MG PO; +NORCO 7.5/325 T1 TA1 PO; +PHENERGAN DM SYR5 ML PO; +TESSALON PERLE100 MG PO
[2019-01-13] MEDS ORDERED: FERROCITE (06:20)
[2019-01-13] MEDS ORDERED: ALTACE10 MG (06:20)
[2019-01-13] MEDS ORDERED: NEURONTIN 300300 MG PO (06:21)
[2019-01-13] MEDS ORDERED: ASCORBIC ACID500 MG PO (06:23)
[2019-01-13] MEDS ORDERED: MAXZIDE 75/501 TAB PO (06:23)
[2019-01-13] MEDS ORDERED: ZYLOPRIM100 MG PO (06:23)
[2019-01-13] MEDS ORDERED: COLACE100 MG (06:24)
[2019-01-13] MEDS ORDERED: OXYBUTYNIN CHLOR5 MG (06:25)
[2019-01-13] MEDS ORDERED: KLOR-CON 1010 MEQ PO (06:26)
[2019-01-13] MEDS ORDERED: VITAMIN B-121000 MCG PO (06:26)
[2019-01-13] MEDS ORDERED: OMEPRAZOLE40 MG PO (06:27)
[2019-01-13] MEDS ORDERED: VITAMIN D3400 UNI1 PO (06:27)
[2019-01-13] MEDS ORDERED: ZYRTEC10 MG PO (06:28)
[2019-01-13] MEDS ORDERED: TERBINAFINE (06:28)
[2019-01-13] MEDS ORDERED: MOBIC7.5 MG PO (06:29)
[2019-01-13 06:44] LABS: BASOPHILS 0.3 % (0-2); EOSINOPHILS 3.5 % (0-7); HEMATOCRIT 47.1 % (42.0-54.0); HEMOGLOBIN 15.2 g/dL (13.5-17.5); IMMATURE GRANULOCYTES 0.6 % (0-5); LYMPHOCYTES 15.3 % (15-50); MCH 28.8 pg (26.0-34.0); MCHC 32.3 g/dL (31.0-37.0); MCV 89.2 fL (80.0-100.0); MEAN PLATELET VOLUME 10.4 fL (7.4-10.4); MONOCYTES 6.3 % (2-11); RBC 5.28 10x6/uL (4.20-6.10); RDW 17.5 % (11.5-14.5); WBC 12.7 10x3/uL (4.8-10.8)
[2019-01-13 06:54] LABS: PLATELET COUNT 260 10x3/uL (130-400)
[2019-01-13 06:56] LABS: APPEARANCE CLEAR (CLEAR); BILIRUBIN NEGATIVE (NEGATIVE); COLOR YELLOW (YELLOW); GLUCOSE NEGATIVE (NEGATIVE); KETONE NEGATIVE (NEGATIVE); NITRITE NEGATIVE (NEGATIVE); PROTEIN NEGATIVE (NEGATIVE); UDS - AMPHET NEGATIVE QUAL (NEGATIVE); UDS - BARB NEGATIVE QUAL (NEGATIVE); UDS - BENZO NEGATIVE QUAL (NEGATIVE); UDS - COCAINE NEGATIVE QUAL (NEGATIVE); UDS - OPIATE NEGATIVE QUAL (NEGATIVE); UDS - PCP NEGATIVE QUAL (NEGATIVE); UDS - THC NEGATIVE QUAL (NEGATIVE); UROBILINOGEN NORMAL (NORMAL)
[2019-01-13 07:13] LABS: ALBUMIN 3.1 g/dL (3.4-5.0); ANION GAP 9.1 mmol/L (8-16); BILIRUBIN - TOTAL 0.39 mg/dL (0.2-1.3); CALCIUM 8.7 mg/dL (8.5-10.1); CARBON DIOXIDE 30.5 mmol/L (21.0-32.0); CREATININE - SERUM 1.3 mg/dL (0.6-1.3); POTASSIUM - SERUM 3.6 mmol/L (3.5-5.1); PROTEIN - SERUM 6.8 g/dL (6.4-8.2)
[2019-01-13 07:14] LABS: MAGNESIUM - SERUM 2.1 mg/dL (1.8-2.4); THYROID STIMULATING HORMONE 0.81 uIU/mL (0.36-3.74)
--- NOTE | 2019-01-13 07:20 | NUR ---
PT GIVEN ICE CHIP PER EDP.
--- NOTE | 2019-01-13 08:36 | NUR ---
PT LEFT DEPARTMENT TO GO TO MRI.
[2019-01-13 10:16] VITALS: BP 142/85
--- NOTE | 2019-01-13 11:19 | MORECARE ---
CASE MANAGEMENT DISCHARGE SUMMARY PATIENT: ERIC SUAREZ UNIT: [id number] ADM DATE: 01/13/19 AGE: 83 : 34 SEX: M ROOM/BED: D.2236 AUTHOR: MARICHUY PATTON PHYSICIAN: REFERRING PHYSICIAN: LUIZA CASILLAS DO DATE OF SERVICE: 01/13/19 Discharge Plan Patient Name: ERIC SUAREZ [facility] [facility] 1935 Planned Disposition: Anticipated Discharge Date: Discharge Date: Expected LOS: Initial Reviewer: [email or web address] Initial Review Date: 01/13/2019 Generated: 01/13/19 12:19 pm Patient Name: ERIC SUAREZ Page 88604 at 1119 All edits/amendments must be made on the electronic document DICTATION DATE: 01/13/19 1119 METAL STORAGE WORKER: EVERARDO 01/13/19 1119 RPT#: [id number] DC DATE: STATUS: ADM IN [facility] [address] [place] [address] END OF REPORT
--- NOTE | 2019-01-13 11:26 | MORECARE ---
CASE MANAGEMENT DISCHARGE SUMMARY PATIENT: ERIC SUAREZ UNIT: [id number] ADM DATE: 01/13/19 AGE: 83 : 34 SEX: M ROOM/BED: D.2236 AUTHOR: MARICHUY PATTON PHYSICIAN: REFERRING PHYSICIAN: LUIZA CASILLAS DO DATE OF SERVICE: 01/13/19 Discharge Plan Patient Name: ERIC SUAREZ [facility] [facility] 1935 Planned Disposition: Anticipated Discharge Date: Discharge Date: Expected LOS: Initial Reviewer: [email or web address] Initial Review Date: 01/13/2019 Generated: 01/13/19 12:26 pm DCPIA - Discharge Planning Initial Assessment Updated by [email or web address]: Jessica Silva on 01/13/19 11:23 am * Is the patient Alert and Oriented? No * How many steps to enter\exit or inside your home? Ramps w/ra * PCP Dr. Casillas * [facility] * Preadmission Environment Home with Family * ADLs Partial Dependent * Partial ADLs (Assistance needed) Dressing * Equipment Hospital Bed Nebulizer Oxygen Rolling Walker * Other Equipment Portable O2 Lift Chair * List name and contact numbers for known caregivers / representatives who currently or will assist patient after discharge: Jennifer Suarez (dtr) [phone] Stacia Suarez () same # * Verbal permission to speak to the caregivers and representatives has been obtained from the patient. Yes * Community resources currently utilized None * Please name any agencies selected above. [facility] * Additional services required to return to the preadmission environment? No * Can the patient safely return to the preadmission environment? Yes * Has this patient been hospitalized within the prior 30 days at any hospital? No Last DP export: 01/13/19 10:19 am Patient Name: ERIC SUAREZ Page 83699 at 1126 All edits/amendments must be made on the electronic document DICTATION DATE: 01/13/19 1126 LATEX THREAD MACHINE OPERATOR: EVERARDO 01/13/19 1126 RPT#: [id number] DC DATE: STATUS: ADM IN [facility] [address] [place] [address] END OF REPORT
--- NOTE | 2019-01-13 12:15 | MORECARE ---
CASE MANAGEMENT DISCHARGE SUMMARY PATIENT: ERIC SUAREZ UNIT: [id number] ADM DATE: 01/13/19 AGE: 83 : 34 SEX: M ROOM/BED: D.2236 AUTHOR: POOJA,DOC PHYSICIAN: REFERRING PHYSICIAN: LUIZA CASILLAS DO DATE OF SERVICE: 01/13/19 Discharge Plan Patient Name: ERIC SUAREZ Facility: [facility]:[place] : 1935 Planned Disposition: Anticipated Discharge Date: Discharge Date: Expected LOS: Initial Reviewer: [email or web address] Initial Review Date: 01/13/2019 Generated: 01/13/19 1:14 pm DCP- Discharge Planning Updated by [email or web address]: Jessica Silva on 01/13/19 11:[address] CM met with patient and spouse, @bedside to discuss dc plans/needs. Patient is somnolent, so information obtained from spouse, Stacia Corcoraner and daughter Jennifer Barba . PCP: Dr. Casillas. Pharmacy: [facility] in [place]. Emergency contact: Jennifer Barba @[phone]. Family states patient requires assistance with bathing, dressing, medication management and lives in the family home. Patient also utilizes a hospital bed, walker, Home O2, portable O2, Nebulizer, lift chair. DME: [facility]. Patient's daughter manages finances, medication. Spouse is the patient's primary caregiver. Patient denies being hospitalized within the past 30 days. CM will follow and assist PRN. Jessica Silva RN, CM DCPIA - Discharge Planning Initial Assessment Updated by [email or web address]: Jessica Silva on 01/13/19 11:23 am * Is the patient Alert and Oriented? No * How many steps to enter\exit or inside your home? Ramps w/ra * PCP Dr. Casillas * Pharmacy [facility] * Preadmission Environment Home with Family * ADLs Partial Dependent * Partial ADLs (Assistance needed) Dressing * Equipment Hospital Bed Nebulizer Oxygen Rolling Walker * Other Equipment Portable O2 Lift Chair * List name and contact numbers for known caregivers / representatives who currently or will assist patient after discharge: Jennifer Suarez (dtr) [phone] Stacia Suarez () same # * Verbal permission to speak to the caregivers and representatives has been obtained from the patient. Yes * Community resources currently utilized None * Please name any agencies selected above. [facility] * Additional services required to return to the preadmission environment? No * Can the patient safely return to the preadmission environment? Yes * Has this patient been hospitalized within the prior 30 days at any hospital? No Last DP export: 01/13/19 10:26 am Patient Name: ERIC SUAREZ Page [phone] at 1215 All edits/amendments must be made on the electronic document DICTATION DATE: 01/13/191213 JUNIOR JAVA DEVELOPER: EVERARDO 01/13/191213 RPT#: [id number] DC DATE: STATUS: ADM IN [facility] [address] [place] [address] END OF REPORT
[2019-01-13 12:39] VITALS: BP 141/68; BMI 28.0
[2019-01-13 16:40] VITALS: BP 155/72
[2019-01-13 20:00] VITALS: BP 151/72
--- NOTE | 2019-01-13 20:30 | NUR ---
RECEIVED REPORT, ASSUMED CARE, CALL LIGHT IN REACH, BED LOWEST POSITION, NO S/S OF DISTRESS NOTED, A&O, LAC IV INFUSING PATENT, WILL CONTINUE POC
[2019-01-14] VITALS: BP 148/63
[2019-01-14 03:00] VITALS: BP 170/79
--- NOTE | 2019-01-14 04:31 | NUR ---
I have reviewed this patient and I concur with the Shift Assessment completed by the Licensed Practical Nurse today this shift.
[2019-01-14 06:41] LABS: BASOPHILS 0.2 % (0-2); EOSINOPHILS 3.8 % (0-7); HEMATOCRIT 42.9 % (42.0-54.0); LYMPHOCYTES 22.1 % (15-50); MCH 28.7 pg (26.0-34.0); MCHC 32.6 g/dL (31.0-37.0); MCV 88.1 fL (80.0-100.0); MEAN PLATELET VOLUME 11.2 fL (7.4-10.4); MONOCYTES 9.6 % (2-11); NEUTROPHILS 63.3 % (40-80); PLATELET COUNT 241 10x3/uL (130-400); RBC 4.87 10x6/uL (4.20-6.10); RDW 17.4 % (11.5-14.5)
[2019-01-14 07:07] LABS: WBC 8.9 10x3/uL (4.8-10.8)
[2019-01-14 07:11] LABS: ALBUMIN 2.7 g/dL (3.4-5.0); ALKALINE PHOSPHATASE 50 U/L (46-116); ALT (SGPT) 13 U/L (10-68); BILIRUBIN - TOTAL 0.37 mg/dL (0.2-1.3); CALC OSMOLALITY 279 mosm/kg (275-300); CALCIUM 8.4 mg/dL (8.5-10.1); CARBON DIOXIDE 24.9 mmol/L (21.0-32.0); CHLORIDE - SERUM 105 mmol/L (98-107); CKMB 1.3 U/L (0.0-3.6); CREATINE KINASE 60 UL (21-232); CREATININE - SERUM 1.1 mg/dL (0.6-1.3); GLUCOSE 104 mg/dL (74-106); POTASSIUM - SERUM 3.6 mmol/L (3.5-5.1); PROTEIN - SERUM 6.3 g/dL (6.4-8.2); SODIUM 140 mmol/L (136-145); UREA NITROGEN 16 mg/dL (7-18); eGFR NON AFRICAN AMERICAN 68 mL/min (90-120)
[2019-01-14 07:13] LABS: TROPONIN-I < 0.017 ng/mL (0.000-0.060)
[2019-01-14 09:07] VITALS: BP 158/78
[2019-01-14 10:38] VITALS: Ht 172.7 cm; Wt 83.5 kg
--- NOTE | 2019-01-14 10:44 | NUR ---
I have reviewed this patient and I concur with the Shift Assessment completed by the Licensed Practical Nurse today this shift.
[2019-01-14] MEDS ORDERED: BACLOFEN10 MG (13:00)
--- NOTE | 2019-01-14 13:01 | NUR ---
DISCONTINUED IV. CATHETER TIP INTAKE, ARM RED AND SWOLLEN. APPLIED ICE PACK TO SITE. DENIES ANY OTHER NEEDS OR DISCOMFORTS.
--- NOTE | 2019-01-14 14:12 | NUR ---
DISCHARGE INSTRUCTIONS GIVEN. VERBALIZES UNDERSTANDING, PRESENT AND VERBALIZES UNDERSTANDING WELL. TRANSPORTED OFF UNIT VIA WHEELCHAIR. DENIES ANY CURRENT NEEDS OR CONCERNS.
--- NOTE | 2019-01-14 15:59 | MORECARE ---
CASE MANAGEMENT DISCHARGE SUMMARY PATIENT: ERIC SUAREZ UNIT: [id number] ADM DATE: 01/13/19 AGE: 83 : 34 SEX: M ROOM/BED: D.2236 AUTHOR: POOJA,DOC PHYSICIAN: REFERRING PHYSICIAN: LUIZA CASILLAS DO DATE OF SERVICE: 01/14/19 Discharge Plan Patient Name: ERIC SUAREZ [facility]:[place] : 1935 Planned Disposition: Home with Home Health Anticipated Discharge Date: 01/14/19 Discharge Date: 01/14/2019 Expected LOS: 1 Initial Reviewer: [email or web address] Initial Review Date: 01/13/2019 Generated: 01/14/19 4:59 pm DCP- Discharge Planning Updated by [email or web address]: Jessica Silva on 01/13/19 11:[address] CM met with patient and spouse, @bedside to discuss dc plans/needs. Patient is somnolent, so information obtained from spouse, Stacia Suarez and daughter Jennifer Barba . PCP: Dr. Casillas. Pharmacy: [facility] in [place]. Emergency contact: Jennifer Barba @[phone]. Family states patient requires assistance with bathing, dressing, medication management and lives in the family home. Patient also utilizes a hospital bed, walker, Home O2, portable O2, Nebulizer, lift chair. DME: [facility]. Patient's daughter manages finances, medication. Spouse is the patient's primary caregiver. Patient denies being hospitalized within the past 30 days. CM will follow and assist PRN. Jessica Silva RN, CM DCPIA - Discharge Planning Initial Assessment Updated by [email or web address]: Jessica Silva on 01/13/19 11:23 am * Is the patient Alert and Oriented? No * How many steps to enter\exit or inside your home? Ramps w/ra * PCP Dr. Casillas * Pharmacy [facility] * Preadmission Environment Home with Family * ADLs Partial Dependent * Partial ADLs (Assistance needed) Dressing * Equipment Hospital Bed Nebulizer Oxygen Rolling Walker * Other Equipment Portable O2 Lift Chair * List name and contact numbers for known caregivers / representatives who currently or will assist patient after discharge: Jennifer Suarez (dtr) [phone] Stacia Suarez () same # * Verbal permission to speak to the caregivers and representatives has been obtained from the patient. Yes * Community resources currently utilized None * Please name any agencies selected above. [facility] * Additional services required to return to the preadmission environment? No * Can the patient safely return to the preadmission environment? Yes * Has this patient been hospitalized within the prior 30 days at any hospital? No Last DP export: 01/13/19 11:14 am Patient Name: ERIC SUAREZ Page [phone] at 1559 All edits/amendments must be made on the electronic document DICTATION DATE: 01/14/191557 FIRE SUPPORT SPECIALIST: EVERARDO 01/14/191557 RPT#: [id number] DC DATE:01/14/19 STATUS: DIS IN [facility] [address] [place] [address] END OF REPORT
--- NOTE | 2019-01-14 16:06 | MORECARE ---
CASE MANAGEMENT DISCHARGE SUMMARY PATIENT: ERIC SUAREZ UNIT: [id number] ADM DATE: 01/13/19 AGE: 83 : 34 SEX: M ROOM/BED: D.2236 AUTHOR: POOJA,DOC PHYSICIAN: REFERRING PHYSICIAN: LUIZA CASILLAS DO DATE OF SERVICE: 01/14/19 Discharge Plan Patient Name: ERIC SUAREZ Facility: [facility]:[place] : 1935 Planned Disposition: Home with Home Health Anticipated Discharge Date: 01/14/19 Discharge Date: 01/14/2019 Expected LOS: 1 Initial Reviewer: [email or web address] Initial Review Date: 01/13/2019 Generated: 01/14/19 5:06 pm Comments DCP- Discharge Planning Updated by [email or web address]: Sindy Mota on 01/14/19 3:[address] 1300 CM SPOKE WITH THE PATIENT'S , STACIA SUAREZ, WITH HIS CONSENT. MULTIPLE FAMILY MEMBERS AT THE BEDSIDE. RECEIVED CONSENT FROM THE PATIENT AND HIS TO PROCEED WITH DISCUSSION FOR DISCHARGE PLANNING. PATIENT HAS PHYSICAL THERAPY VIA HOME HEALTH. THEY COULD NOT REMEMBER WHICH PROVIDER. CALLED [facility]. HIS DAUGHTER WAS OUT OF TOWN. SHE HAD ASSISTED W/ HOME HEALTH. THEY WERE FINALLY ABLE TO ADVISE CM IT WAS [facility]. REC TELEPHONE CALL FROM [facility]. CM WILL NEED TO CHECK IF IT IS [facility]. CM WILL FOLLOW THRU AND REFAX REFERRAL FOR SN TO APPROPRIATE [facility] PROVIDER. TRANSPORTATION IS AVAILABLE. NO ADDITIONAL NEEDS VOICED. DCP- Discharge Planning Updated by [email or web address]: Jessica Silva on 01/13/19 11:[address] CM met with patient and spouse, @bedside to discuss dc plans/needs. Patient is somnolent, so information obtained from spouse, Stacia Suarez and daughter Jennifer Barba . PCP: Dr. Casillas. Pharmacy: [facility] in [place]. Emergency contact: Jennifer Barba @[phone]. Family states patient requires assistance with bathing, dressing, medication management and lives in the family home. Patient also utilizes a hospital bed, walker, Home O2, portable O2, Nebulizer, lift chair. DME: [facility]. Patient's daughter manages finances, medication. Spouse is the patient's primary caregiver. Patient denies being hospitalized within the past 30 days. CM will follow and assist PRN. Jessica Silva RN CM DCPIA - Discharge Planning Initial Assessment Updated by [email or web address]: Jessica Silva on 01/13/19 11:23 am * Is the patient Alert and Oriented? No * How many steps to enter\exit or inside your home? Ramps w/ra * PCP Dr. Casillas * [facility] * Preadmission Environment Home with Family * ADLs Partial Dependent * Partial ADLs (Assistance needed) Dressing * Equipment Hospital Bed Nebulizer Oxygen Rolling Walker * Other Equipment Portable O2 Lift Chair * List name and contact numbers for known caregivers / representatives who currently or will assist patient after discharge: Jennifer Suarez (dtr) [phone] Stacia Suarez () same # * Verbal permission to speak to the caregivers and representatives has been obtained from the patient. Yes * Community resources currently utilized None * Please name any agencies selected above. [facility] * Additional services required to return to the preadmission environment? No * Can the patient safely return to the preadmission environment? Yes * Has this patient been hospitalized within the prior 30 days at any hospital? No Last DP export: 01/14/19 2:59 pm Patient Name: ERIC SUAREZ Page [id number] at 1606 All edits/amendments must be made on the electronic document DICTATION DATE: 01/14/191604 PMO LEAD: EVERARDO 01/14/19 160 RPT#: [id number] DC DATE:01/14/19 STATUS: DIS IN [facility] [address] [facility] [address] END OF REPORT
--- NOTE | 2019-01-15 17:44 | MORECARE ---
CASE MANAGEMENT DISCHARGE SUMMARY PATIENT: ERIC SUAREZ UNIT: [id number] ADM DATE: 01/13/19 AGE: 83 : 34 SEX: M ROOM/BED: D.2236 AUTHOR: POOJA,DOC PHYSICIAN: REFERRING PHYSICIAN: LUIZA CASILLAS DO DATE OF SERVICE: 01/15/19 Discharge Plan Patient Name: ERIC SUAREZ Facility: [facility]:[place] : 1935 Planned Disposition: Home with Home Health Anticipated Discharge Date: 01/14/19 Discharge Date: 01/14/2019 Expected LOS: 1 Initial Reviewer: [email or web address] Initial Review Date: 01/13/2019 Generated: 01/15/19 6:44 pm Comments DCP- Discharge Planning Updated by [email or web address]: Sindy Mota on 01/15/19 4:[address] LATE [id number] CM RECEIVED A TELEPHONE CALL FROM [facility]. SHE HAD RECEIVED MY MESSAGE AND WOULD CONTACT THE PATIENT TODAY REGARDING START OF SERVICE FOR [facility]. DCP- Discharge Planning Updated by [email or web address]: Sindy Mota on 01/14/19 3:[address] 1300 CM SPOKE WITH THE PATIENT'S , STACIA SUAREZ, WITH HIS CONSENT. MULTIPLE FAMILY MEMBERS AT THE BEDSIDE. RECEIVED CONSENT FROM THE PATIENT AND HIS TO PROCEED WITH DISCUSSION FOR DISCHARGE PLANNING. PATIENT HAS PHYSICAL THERAPY VIA HOME HEALTH. THEY COULD NOT REMEMBER WHICH PROVIDER. CALLED [facility]. HIS DAUGHTER WAS OUT OF TOWN. SHE HAD ASSISTED W/ HOME HEALTH. THEY WERE FINALLY ABLE TO ADVISE CM IT WAS [facility]. REC TELEPHONE CALL FROM [facility]. CM WILL NEED TO CHECK IF IT IS [facility]. CM WILL FOLLOW THRU AND REFAX REFERRAL FOR SN TO APPROPRIATE [facility] PROVIDER. TRANSPORTATION IS AVAILABLE. NO ADDITIONAL NEEDS VOICED. DCP- Discharge Planning Updated by [email or web address]: Jessica Silva on 01/13/19 11:[address] CM met with patient and spouse, @bedside to discuss dc plans/needs. Patient is somnolent, so information obtained from spouse, Stacia Suarez and daughter Jennifer Barba . PCP: Dr. Casillas. Pharmacy: [facility] in [place]. Emergency contact: Jennifer Barba @[phone]. Family states patient requires assistance with bathing, dressing, medication management and lives in the family home. Patient also utilizes a hospital bed, walker, Home O2, portable O2, Nebulizer, lift chair. DME: [facility]. Patient's daughter manages finances, medication. Spouse is the patient's primary caregiver. Patient denies being hospitalized within the past 30 days. CM will follow and assist PRN. Jessica Silva RN, CM DCPIA - Discharge Planning Initial Assessment Updated by [email or web address]: Jessica Silva on 01/13/19 11:23 am * Is the patient Alert and Oriented? No * How many steps to enter\exit or inside your home? Ramps w/ra * PCP Dr. Casillas * [facility] * Preadmission Environment Home with Family * ADLs Partial Dependent * Partial ADLs (Assistance needed) Dressing * Equipment Hospital Bed Nebulizer Oxygen Rolling Walker * Other Equipment Portable O2 Lift Chair * List name and contact numbers for known caregivers / representatives who currently or will assist patient after discharge: Jennifer Suarez (dtr) [phone] Stacia Suarez () same # * Verbal permission to speak to the caregivers and representatives has been obtained from the patient. Yes * Community resources currently utilized None * Please name any agencies selected above. [facility] * Additional services required to return to the preadmission environment? No * Can the patient safely return to the preadmission environment? Yes * Has this patient been hospitalized within the prior 30 days at any hospital? No Coverage Notice Reviewer: [id number] Phuong Mota Notice Issued Date-Time: 01/14/2019 13:00 Notice Type: IM Discharge Notice Notice Delivered To: Family Member Relationship to Patient: Spouse Burglar Alarm Assembler Name: STACIA SUAREZ Delivery Method: HAND - Hand Delivered [place] Days: Prior Verbal Notification: Recipient Understood Notice: Yes Recipient Signature: Yes Med Rec Note Co-signed by Attending: Coverage Notice Comment: DISCUSSED DISCHARGE IMM W/ STACIA BURKETT, SPOUSE, WITH PATIENT'S CONSENT. NO QUESTIONS OR CONCERNS VOICED. COPY TO THE SPOUSE AND COPY TO THE HARD COVER CHART. Last DP export: 01/14/19 3:06 pm Patient Name: ERIC SUAREZ Page [id number] at 1744 All edits/amendments must be made on the electronic document DICTATION DATE: 01/15/191743 DJ INSTRUCTOR: EVERARDO 01/15/191743 RPT#: [id number] DC DATE:01/14/19 STATUS: DIS IN [facility] [address] [place] [address] END OF REPORT
--- NOTE | 2019-01-16 16:57 | MORECARE ---
CASE MANAGEMENT DISCHARGE SUMMARY PATIENT: ERIC SUAREZ UNIT: [id number] ADM DATE: 01/13/19 AGE: 83 : 34 SEX: M ROOM/BED: D.2236 AUTHOR: POOJA,DOC PHYSICIAN: REFERRING PHYSICIAN: LUIZA CASILLAS DO DATE OF SERVICE: 01/16/19 Discharge Plan Patient Name: ERIC SUAREZ Facility: [facility]:[place] : 1935 Planned Disposition: Home with Home Health Anticipated Discharge Date: 01/14/19 Discharge Date: 01/14/2019 Expected LOS: 1 Initial Reviewer: [email or web address] Initial Review Date: 01/13/2019 Generated: 01/16/19 5:57 pm Comments DCP- Discharge Planning Updated by [email or web address]: Sindy Mota on 01/15/19 4:[address] LATE [id number] CM RECEIVED A TELEPHONE CALL FROM [facility]. SHE HAD RECEIVED MY MESSAGE AND WOULD CONTACT THE PATIENT TODAY REGARDING START OF SERVICE FOR DETENTION. DCP- Discharge Planning Updated by [id number]: Sindy Mota on 01/14/19 3:[address] 1300 CM SPOKE WITH THE PATIENT'S , STACIA SUAREZ, WITH HIS CONSENT. MULTIPLE FAMILY MEMBERS AT THE BEDSIDE. RECEIVED CONSENT FROM THE PATIENT AND HIS TO PROCEED WITH DISCUSSION FOR DISCHARGE PLANNING. PATIENT HAS PHYSICAL THERAPY VIA HOME HEALTH. THEY COULD NOT REMEMBER WHICH PROVIDER. CALLED [facility]. HIS DAUGHTER WAS OUT OF TOWN. SHE HAD ASSISTED W/ HOME HEALTH. THEY WERE FINALLY ABLE TO ADVISE CM IT WAS [facility]. REC TELEPHONE CALL FROM [facility]. CM WILL NEED TO CHECK IF IT IS [facility]. CM WILL FOLLOW THRU AND REFAX REFERRAL FOR SN TO APPROPRIATE [facility] PROVIDER. TRANSPORTATION IS AVAILABLE. NO ADDITIONAL NEEDS VOICED. DCP- Discharge Planning Updated by [email or web address]: Jessica Silva on 01/13/19 11:[address] CM met with patient and spouse, @bedside to discuss dc plans/needs. Patient is somnolent, so information obtained from spouse, Stacia Suarez and daughter Jennifer Barba . PCP: Dr. Casillas. Pharmacy: [facility] in [place]. Emergency contact: Jennifer Barba @[phone]. Family states patient requires assistance with bathing, dressing, medication management and lives in the family home. Patient also utilizes a hospital bed, walker, Home O2, portable O2, Nebulizer, lift chair. DME: [facility]. Patient's daughter manages finances, medication. Spouse is the patient's primary caregiver. Patient denies being hospitalized within the past 30 days. CM will follow and assist PRN. Jessica Silva RN, CM DCPIA - Discharge Planning Initial Assessment Updated by [id number]: Jessica Silva on 01/13/19 11:23 am * Is the patient Alert and Oriented? No * How many steps to enter\exit or inside your home? Ramps w/ra * PCP Dr. Casillas * [facility] * Preadmission Environment Home with Family * ADLs Partial Dependent * Partial ADLs (Assistance needed) Dressing * Equipment Hospital Bed Nebulizer Oxygen Rolling Walker * Other Equipment Portable O2 Lift Chair * List name and contact numbers for known caregivers / representatives who currently or will assist patient after discharge: Jennifer Suarez (dtr) [phone] Stacia Suarez () same # * Verbal permission to speak to the caregivers and representatives has been obtained from the patient. Yes * Community resources currently utilized None * Please name any agencies selected above. [facility] * Additional services required to return to the preadmission environment? No * Can the patient safely return to the preadmission environment? Yes * Has this patient been hospitalized within the prior 30 days at any hospital? No Coverage Notice Reviewer: [id number] Phuong Mota Notice Issued Date-Time: 01/14/2019 13:00 Notice Type: IM Discharge Notice Notice Delivered To: Family Member Relationship to Patient: Spouse Automatic Vulcanizing Operator Name: STACIA SUAREZ Delivery Method: HAND - Hand Delivered [place] Days: Prior Verbal Notification: Recipient Understood Notice: Yes Recipient Signature: Yes Med Rec Note Co-signed by Attending: Coverage Notice Comment: DISCUSSED DISCHARGE IMM W/ STACIA BURKETT, SPOUSE, WITH PATIENT'S CONSENT. NO QUESTIONS OR CONCERNS VOICED. COPY TO THE SPOUSE AND COPY TO THE HARD COVER CHART. Last DP export: 01/15/19 4:44 pm Patient Name: ERIC SUAREZ Page [id number] at 1657 All edits/amendments must be made on the electronic document DICTATION DATE: 01/16/191656 SERVICE LINE COORDINATOR: EVERARDO 01/16/191656 RPT#: [id number] DC DATE:01/14/19 STATUS: DIS IN [facility] [address] [place] [address] END OF REPORT
== END 2019-01-14 14:13 | disposition home health service (06) ==
LOC: D.ER 06:08 → OBSVTIME 10:38 → D.EDHOLD 10:38 → D.MS 11:05
PROVIDERS: Emergency Medicine; Family Medicine; ADMIT Family Medicine; ATTEND Family Medicine
DX: G93.41 Metabolic encephalopathy (principal); R55 Syncope and collapse; W19.XXXA Unspecified fall, initial encounter; H54.7 Unspecified visual loss; N40.0 Benign prostatic hyperplasia without lower urinary tract symptoms; J44.9 Chronic obstructive pulmonary disease, unspecified; F17.213 Nicotine dependence, cigarettes, with withdrawal; F41.9 Anxiety disorder, unspecified; I10 Essential (primary) hypertension; Z86.73 Personal history of transient ischemic attack (TIA), and cerebral infarction without residual deficits

== ENCOUNTER 2021-01-25 08:42 | Emergency (ER) | payer MEDICARE ==
[~2021-01-25] VITALS: Ht 172.7 cm; Wt 90.9 kg
[~2021-01-25 08:42] MED LIST changes: +ALTACE10 MG; +ASCORBIC ACID500 MG PO; +BACLOFEN10 MG; +COLACE100 MG; +FERROCITE; +KLOR-CON 1010 MEQ PO; +MAXZIDE 75/501 TAB PO; +OXYBUTYNIN CHLOR5 MG; +TERBINAFINE; +VITAMIN B-121000 MCG PO; +VITAMIN D3400 UNI1 PO; +ZYRTEC10 MG PO
[2021-01-25 08:51] VITALS: BP 155/77; Ht 172.7 cm; Wt 90.9 kg
[2021-01-25 10:04] LABS: BILIRUBIN NEGATIVE (NEGATIVE); KETONE NEGATIVE (NEGATIVE); NITRITE NEGATIVE (NEGATIVE); UROBILINOGEN NORMAL mg/dL (< 2); WHITE CELLS - URINE 0-5 HPF (0-1)
[2021-01-25 10:05] LABS: BACTERIA RARE HPF (NONE SEEN); SQUAMOUS EPITHELIAL 0-5 HPF (0-4)
[2021-01-25 10:50] LABS: CALC OSMOLALITY 289 mosm/kg (275-300); CALCIUM 8.7 mg/dL (8.5-10.1); CARBON DIOXIDE 29.8 mmol/L (21.0-32.0); CHLORIDE - SERUM 106 mmol/L (98-107); CREATININE - SERUM 1.2 mg/dL (0.6-1.3); GLUCOSE 98 mg/dL (74-106); POTASSIUM - SERUM 3.6 mmol/L (3.5-5.1); SODIUM 143 mmol/L (136-145); UREA NITROGEN 27 mg/dL (7-18); eGFR NON AFRICAN AMERICAN 61 mL/min (90-120)
[2021-01-25 10:59] LABS: BASOPHILS 0.5 % (0-2); EOSINOPHILS 3.8 % (0-7); HEMATOCRIT 48.4 % (42.0-54.0); HEMOGLOBIN 15.8 g/dL (13.5-17.5); IMMATURE GRANULOCYTES 0.3 % (0-5); LYMPHOCYTE ABS# 1.39 10x3/uL (1.32-3.57); MCHC 32.6 g/dL (31.0-37.0); MCV 95.1 fL (80.0-100.0); MEAN PLATELET VOLUME 11.1 fL (7.4-10.4); NEUTROPHIL ABS# 4.28 10x3/uL (1.78-5.38); NEUTROPHILS 64.4 % (40-80); PLATELET COUNT 202 10x3/uL (130-400); RBC 5.09 10x6/uL (4.20-6.10); RDW 15.4 % (11.5-14.5); WBC 6.6 10x3/uL (4.8-10.8)
[2021-01-25 11:04] LABS: APTT 31.7 SECONDS (22.8-39.4); INR 1.07 (0.85-1.17); PROTIME 12.9 SECONDS (11.6-15.0)
[2021-01-25 11:07] LABS: ALBUMIN 3.3 g/dL (3.4-5.0); ALKALINE PHOSPHATASE 50 U/L (30-120); ALT (SGPT) 22 U/L (10-68); BILIRUBIN - TOTAL 0.44 mg/dL (0.2-1.3); CKMB 0.9 U/L (0.0-3.6); CREATINE KINASE 37 UL (21-232); PROTEIN - SERUM 6.4 g/dL (6.4-8.2)
[2021-01-25 11:09] LABS: TROPONIN-I < 0.017 ng/mL (0.000-0.060)
== END 2021-01-25 12:43 | disposition home or self-care (01) ==
LOC: D.ER 08:42
PROVIDERS: Family Medicine
DX: Z71.1 Person with feared health complaint in whom no diagnosis is made (principal); I10 Essential (primary) hypertension; J44.9 Chronic obstructive pulmonary disease, unspecified